=== PATIENT | male | born 1970 | race American Indian/Alaskan Native ===

== ENCOUNTER 2019-07-08 10:03 | Inpatient (IN) | payer BC ==
--- NOTE | 2019-07-08 11:51 | Emergency Department Report ---
HPI - General Chief Complaint: Extremity Injury, Lower Time Seen by Provider: 07/08/19 11:03 - HPI HPI: Room 37 The patient is a 49-year-old male presenting with chief complaint of right Lotrimin pain. Patient states he awakened this morning at 04:00 with pain in his right lower extremity that felt like a "charley horse." Patient states of 07:00 he got out of bed but the pain was persistent. This prompted the patient come to the emergency department. The patient gets his pain score of 10/10. Patient denies chest pain or shortness of breath. 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 The patient states he's has been compliant with his Eliquis ED Past Medical Hx - Past Medical History Hx Deep Vein Thrombosis: Yes (right lower extremity) - Surgical History Past Surgical History?: No - Family History Family history: no significant - Social History Smoking Status: Current Every Day Smoker (1/7 pack per day) Substance Use Type: Alcohol (occasional), Cocaine ED Review of Systems ROS: Stated complaint: RT LEG PAIN/POSS BLOD CLOT Other details as noted in HPI Constitutional: no symptoms reported Eyes: denies: eye pain ENT: denies: throat pain Respiratory: denies: shortness of breath Cardiovascular: denies: chest pain Endocrine: no symptoms reported Gastrointestinal: denies: abdominal pain Genitourinary: denies: dysuria Musculoskeletal: myalgia Neurological: denies: headache Physical Exam - Physical Exam Vital Signs: Vital Signs 07/08/19 10:09 Temperature 98.4 F Pulse Rate 84 Respiratory 16 Rate Blood Pressure 150/90 O2 Sat by Pulse 100 Oximetry Physical Exam: GENERAL: The patient is well-developed well-nourished male lying on stretcher not appearing to be in acute distress. [] HEENT: Normocephalic. Atraumatic. Extraocular motions are intact. Patient has moist mucous membranes. NECK: Supple. Trachea midline CHEST/LUNGS: There is no respiratory distress noted. HEART/CARDIOVASCULAR: Regular. There is no tachycardia. 2+ DP right foot SKIN: There is no rash. There is no edema. There is no diaphoresis. There is a chronic appearing ulceration to the medial aspect of the right lower extremity NEURO: The patient is awake, alert, and oriented. The patient is cooperative. The patient has normal speech MUSCULOSKELETAL: There is no evidence of acute injury. ED Course Vital Signs 07/08/19 10:09 Temperature 98.4 F Pulse Rate 84 Respiratory 16 Rate Blood Pressure 150/90 O2 Sat by Pulse 100 Oximetry ED Medical Decision Making - Radiology Data Radiology results: report reviewed (right lower extremity Doppler), image reviewed (right lower extremity Doppler) [facility] [address] [place] [address] Vascular Lab Report Signed Patient: DILEEP OROPEZA MR#: [id number] : 1970 Acct:[id number] Age/Sex: 49 / M ADM Date: 07/08/19 Loc: ED Attending Dr: Ordering Physician: NAHID EDMOND MD Date of Service: 07/08/19 Procedure(s): VL venous duplex LE RT Accession Number(s): [id number] cc: NAHID EDMOND MD DUPLEX DOPPLER RIGHT LOWER EXTREMITY VEINS INDICATION: Right leg pain. FINDINGS: There is subtle lack of compressibility and partial lack of flow in the right proximal superficial femoral vein and right superficial femoral vein midportion. The other right lower extremity veins appear patent. IMPRESSION: Partial DVT in the right proximal and mid superficial femoral veins. Signer Name: Royal Arroyo MD Signed: 07/08/2019 11:54 AM Workstation Name: [id number] Transcribed By: KAHLIL Dictated By: Royal Arroyo MD Electronically Authenticated By: Royal Arroyo MD Signed Date/Time: 07/08/19 1154 DD/ 1152 TD/TT: - Differential Diagnosis DVT, muscle spasm Critical care attestation.: If time is entered above; I have spent that time in minutes in the direct care of this critically ill patient, excluding procedure time. ED Disposition Clinical Impression: Right leg DVT Disposition: - OP ADMIT IP TO THIS HOSP Is pt being admited?: Yes Does the pt Need Aspirin: No Condition: Fair Referrals: PRIMARY CARE, [Primary Care Provider] - 3-5 Days Time of Disposition: 12:30 (hospitalist paged (Dr. Sandoval))
--- NOTE | 2019-07-08 11:58 | Vascular Lab Report ---
DUPLEX DOPPLER RIGHT LOWER EXTREMITY VEINS INDICATION: Right leg pain. FINDINGS: There is subtle lack of compressibility and partial lack of flow in the right proximal superficial fe moral vein and right superficial femoral vein midportion. The other right lower extremity veins appea r patent. IMPRESSION: Partial DVT in the right proximal and mid superficial femoral veins. Signer Name: Royal Arroyo MD Signed: 07/08/2019 11:54 AM Workstation Name: [id number]
[2019-07-08 12:32] LABS: Basophils # (Auto) 0.1 K/mm3 (0.0-0.1); Basophils % (Auto) 0.8 % (0.0-1.8); Eosinophils # (Auto) 0.4 K/mm3 (0.0-0.4); Eosinophils % (Auto) 5.5 % (0.0-4.3); Hemoglobin 13.9 gm/dl (11.8-15.2); Lymphocytes # (Auto) 2.2 K/mm3 (1.2-5.4); Lymphocytes % (Auto) 30.5 % (13.4-35.0); Mean Corpuscular HGB Conc 32 % (32-34); Mean Corpuscular Volume 85 fl (84-94); Monocytes # (Auto) 0.5 K/mm3 (0.0-0.8); Monocytes % (Auto) 7.3 % (0.0-7.3); Platelet Count 222 K/mm3 (140-440); Red Blood Count 5.05 M/mm3 (3.65-5.03)
[2019-07-08] MEDS ORDERED: HYDROcodone/ACETAMINOPHEN 5-325 MG TAB PO ONE (12:33)
[2019-07-08 12:41] LABS: BUN/Creatinine Ratio 16; Blood Urea Nitrogen 14 mg/dL (9-20); Calcium 9.2 mg/dL (8.4-10.2); Hemolysis Index 5
[2019-07-08] MEDS ORDERED: ONDANSETRON 4 MG/2 ML INJ IV PRN (13:10)
[2019-07-08] MEDS ORDERED: ACETAMINOPHEN 325 MG TAB PO PRN (13:10)
[2019-07-08] MEDS ORDERED: ALBUTEROL 2.5 MG/3 ML NEBU IH PRN (13:10)
--- NOTE | 2019-07-08 13:12 | History and Physical Report ---
History of Present Illness Chief complaint: My leg hurts History of present illness: 49 YO Male with recurrent DVT on Therapeutic Anticoagualtion with Eliquis, Nicotine dependence, Obesity presents to ED for evaluation. Pt states that he has experienced pain in his right leg over the past 1 day. Pt states that he has experienced worsening symptoms overnight and was awakened from sleep at 0400hrs with pain in his right lower extremity that felt like a "charley horse." Patient returned to sleep and was awakened at 07:00hrs with persistent symptoms. Pt transported to [facility] via private vehicle. Pt seen and evaluated in ED and found to have recurrent RLE DVT while on anticoagulation. Pt placed in observation status and admitted to medical floor. Vascular team consulted in ED. Pt initiated on heparin drip. Pt denies fever, chills, chest pain, palpitations, NVD, Trauma, shortness of breath, ETOH use, cocaine use, skin rash or recent ill contacts. No prior admission for review. All listed medication reconciled at time of admission. Past History Past Medical History: other (see HPI) Past Surgical History: No surgical history (reviewed) Social history: single, smoking. denies: alcohol abuse, prescription drug abuse , IV drug use Family history: hypertension Medications and Allergies Allergies Allergy/AdvReac Type Severity Reaction Status Date / Time No Known Allergies Allergy Verified 07/08/19 13:24 Active Meds: Active Medications Acetaminophen (Tylenol) 650 mg PO Q4H PRN PRN Reason: Pain MILD(1-3)/Fever >100.5/SHELDON Albuterol (Proventil) 2.5 mg IH Q4HRT PRN PRN Reason: Shortness Of Breath Ondansetron HCl (Zofran) 4 mg IV Q8H PRN PRN Reason: Nausea And Vomiting Oxycodone/Acetaminophen (Percocet 5/325) 1 tab PO Q6H PRN PRN Reason: Pain, Moderate (4-6) Sodium Chloride (Sodium Chloride Flush Syringe 10 Ml) 10 ml IV BID DAVID Sodium Chloride (Sodium Chloride Flush Syringe 10 Ml) 10 ml IV PRN PRN PRN Reason: LINE FLUSH Review of Systems Constitutional: no weight loss, no weight gain, no fever, no chills Ears, nose, mouth and throat: no ear pain, no ear discharge, no tinnitis, no decreased hearing, no nose pain, no nasal discharge, no sinus pressure Cardiovascular: no chest pain, no orthopnea, no edema, no syncope, no lightheadedness, no shortness of breath Respiratory: no cough, no cough with sputum, no excessive sputum, no hemoptysis, no shortness of breath, no dyspnea on exertion, no congestion, no pain, no pain on inspiration Gastrointestinal: no nausea, no vomiting, no diarrhea, no constipation, no change in bowel habits Genitourinary Male: no hematuria, no flank pain, no discharge, no urinary frequency, no urinary hesitancy, no nocturia, no incontinence Rectal: no pain, no incontinence, no bleeding Musculoskeletal: no neck stiffness, no neck pain, no shooting arm pain, no arm numbness/tingling, no low back pain, no shooting leg pain, no leg numbness/tingling Integumentary: no rash, no pruritis, no redness, no sores, no wounds, no jaundice Neurological: no transient paralysis, no paralysis, no weakness, no parathesias, no numbness, no tingling, no seizures, no syncope Psychiatric: no memory loss, no change in sleep habits, no sleep disturbances, no insomnia, no hypersomnia, no change in appetite, no change in libido, no suicidal ideation, no disorientation, no hallucinations Exam - Constitutional Vitals: Temp Pulse Resp BP Pulse Ox 98.4 F 84 16 150/90 100 07/08/19 10:09 07/08/19 10:09 07/08/19 10:09 07/08/19 10:09 07/08/19 10:09 General appearance: Present: no acute distress, well-nourished - EENT Eyes: Present: PERRL ENT: hearing intact, clear oral mucosa - Neck Neck: Present: supple, normal ROM - Respiratory Respiratory effort: normal Respiratory: bilateral: CTA - Cardiovascular Heart Sounds: Present: S1 & S2. Absent: rub, click - Extremities Extremities: pulses symmetrical, No edema Extremity abnormal: edema, ulceration (RLE Ulceration, tenderness, palpable cords) Peripheral Pulses: within normal limits - Abdominal General gastrointestinal: Present: soft, non-tender, non-distended, normal bowel sounds Male genitourinary: Present: normal - Integumentary Integumentary: Present: clear, warm, dry - Musculoskeletal Musculoskeletal: gait normal, strength equal bilaterally - Psychiatric Psychiatric: appropriate mood/affect, intact judgment & insight - Neurologic Neurologic: CNII-XII intact, moves all extremities Results - Labs CBC & Chem 7: 07/08/19 14:07 07/08/19 11:56 Labs: Abnormal lab results 07/08/19 Range/Units 11:56 RBC 5.05 H (3.65-5.03) M/mm3 Eos % (Auto) 5.5 H (0.0-4.3) % Assessment and Plan - Patient Problems (1) Right leg DVT Current Visit: Yes Status: Acute Qualifiers: Affected thrombotic vein of extremity: femoral Chronicity: acute Qualified Code(s): I82.411 - Acute embolism and thrombosis of right femoral vein Plan to address problem: Therapeutic anticoagulation, Vascular surgery consulted, supportive care, risk factor reduction, pain control. (2) Nicotine dependence Current Visit: Yes Status: Acute Qualifiers: Substance use status: in withdrawal Plan to address problem: smoking cessation counseling, +15min, supportive care (3) Obesity (BMI 30-39.9) Current Visit: Yes Status: Acute Plan to address problem: Balanced diet, increased physical activity at discharge (4) DVT prophylaxis Current Visit: Yes Status: Acute Plan to address problem: SCD to BLE while in bed, therapeutic anticoagulation
[2019-07-08 13:27] LABS: INR 1.04 (0.87-1.13)
[2019-07-08 13:28] LABS: Partial Thromboplastin Time 26.7 Sec. (24.2-36.6)
--- NOTE | 2019-07-08 13:29 | Consultation ---
History of Present Illness - Reason for Consult Consult date: 07/08/19 Right leg DVT - History of Present Illness Patient with a history of at least for right leg DVTs over the past 10 years. T he patient states that he has been compliant with Eliquis however, he is recently moved here from [place] and does not have local insurance. He presents with right lower extremity pain and a venous stasis ulcer overlying the medial malleolus. The patient states that he has had multiple venous stasis ulcers as well. 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 The patient has not had treatment of either superficial or deep venous system. The patient states that he has undergone hypercoagulable workup. Past History Past Medical History: DVT Social history: no significant social history Family history: no significant family history Medications and Allergies Allergies Allergy/AdvReac Type Severity Reaction Status Date / Time No Known Allergies Allergy Unverified 07/08/19 10:07 Active Meds: Active Medications Acetaminophen (Tylenol) 650 mg PO Q4H PRN PRN Reason: Pain MILD(1-3)/Fever >100.5/SHELDON Albuterol (Proventil) 2.5 mg IH Q4HRT PRN PRN Reason: Shortness Of Breath Heparin Sodium (Porcine) (Heparin 10,000 Units/10 Ml) 3,900 unit 40 unit/kg (3900 unit) IV ONCE ONE Stop: 07/08/19 13:12 Heparin Sodium/Sodium Chloride (Heparin/ 0.45% Nacl-25,000 Unit/500 Ml) 25,000 unit in 500 mls @ 29.61 mls/hr IV TITR DAVID; Protocol Ondansetron HCl (Zofran) 4 mg IV Q8H PRN PRN Reason: Nausea And Vomiting Oxycodone/Acetaminophen (Percocet 5/325) 1 tab PO Q6H PRN PRN Reason: Pain, Moderate (4-6) Sodium Chloride (Sodium Chloride Flush Syringe 10 Ml) 10 ml IV BID DAVID Sodium Chloride (Sodium Chloride Flush Syringe 10 Ml) 10 ml IV PRN PRN PRN Reason: LINE FLUSH Review of Systems All systems: negative Exam - Constitutional Vitals: Temp Pulse Resp BP Pulse Ox 98.4 F 84 16 150/90 100 07/08/19 10:09 07/08/19 10:09 07/08/19 10:09 07/08/19 10:09 07/08/19 10:09 General appearance: Present: no acute distress - EENT Eyes: Present: EOM intact ENT: hearing intact - Neck Neck: Present: supple, normal ROM - Respiratory Respiratory effort: normal - Extremities Extremities: abnormal Extremity abnormal: edema, ulceration - Abdominal General gastrointestinal: Present: deferred Male genitourinary: Present: deferred - Rectal Rectal Exam: deferred - Psychiatric Psychiatric: appropriate mood/affect, cooperative - Neurologic Neurologic: no focal deficits Results - Labs CBC & Chem 7: 07/08/19 11:56 07/08/19 11:56 Labs: Abnormal lab results 07/08/19 Range/Units 11:56 RBC 5.05 H (3.65-5.03) M/mm3 Eos % (Auto) 5.5 H (0.0-4.3) % - Imaging and Cardiology Venous US: report reviewed, image reviewed Assessment and Plan Given the patient's recurrent venous stasis ulcers involving his right leg and recurrent DVT, the patient will need to undergo ultrasound evaluation of both the superficial and deep venous system. Additionally, an arterial duplex will be ordered. His dorsalis pedis is palpable however, am unable to palpate his p osterior tibial secondary to overlying ulcer. The patient will ultimately likely require treatment of both the superficial and deep venous systems to allow healing of his ulcerations and prevention of recurrent DVTs. The patient's recurrent
[2019-07-08] MEDS ORDERED: HEPARIN 10,000 UNITS/10 ML VIAL IV ONE (14:00)
[2019-07-08 14:26] LABS: Hematocrit 41.2 % (35.5-45.6); Hemoglobin 13.3 gm/dl (11.8-15.2)
[2019-07-08 14:37] LABS: INR 1.06 (0.87-1.13)
[2019-07-08 14:38] LABS: Partial Thromboplastin Time 28.6 Sec. (24.2-36.6)
[2019-07-08] MEDS ORDERED: HEPARIN/ 0.45% NACL DRIP 25,000 UNIT/500 ML BAG ONE (16:13)
[2019-07-08] MEDS ORDERED: HEPARIN 10,000 UNITS/10 ML VIAL ONE (16:13)
[2019-07-08] MEDS: HEPARIN/ 0.45% NACL DRIP 25,000 UNIT/500 ML BAG IV SCH (16:21)
[2019-07-08 17:11] LABS: Amphetamine Screen,Urine PRESUMPTIVE NEGATIVE; Benzodiazepines Screen,Urine PRESUMPTIVE NEGATIVE; Cannabinoid Screen,Urine PRESUMPTIVE NEGATIVE; Methadone Screen,Urine PRESUMPTIVE NEGATIVE; Opiate Screen,Urine PRESUMPTIVE NEGATIVE
[2019-07-08 17:39] LABS: Cocaine Screen,Urine PRESUMPTIVE POSITIVE
[2019-07-08] MEDS: oxyCODONE /ACETAMINOPHEN 5-325MG TAB PO PRN (19:44)
[2019-07-09] MEDS: oxyCODONE /ACETAMINOPHEN 5-325MG TAB PO PRN ×3 (06:08→21:12)
--- NOTE | 2019-07-09 10:08 | Progress Note ---
Assessment and Plan Patient awaiting his vascular ultrasounds, further recommendations to follow. The patient will need treatment of the underlying etiology of his recurrent DVTs. Additionally, the patient will need to be placed on lifelong anticoagulation. The patient has recently moved to [place] and will need initiation of wound care as an outpatient. Subjective Date of service: 07/09/19 Principal diagnosis: right leg DVT, venous insufficiency, venous stasis ulcers Interval history: Patient resting comfortably in bed, decreased pain, patient has not yet had his vascular ultrasounds. Objective - Constitutional Vitals: Vital Signs - 12hr 07/08/19 07/09/19 22:54 06:35 Temperature 98.0 F 97.9 F Pulse Rate 62 62 Respiratory 18 18 Rate Blood Pressure 114/54 117/54 O2 Sat by Pulse 98 96 Oximetry General appearance: Present: no acute distress - EENT Eyes: EOM intact ENT: hearing intact - Neck Neck: supple, normal ROM - Respiratory Respiratory effort: normal - Breasts Breasts: deferred Extremity abnormal: edema, ulceration - Gastrointestinal General gastrointestinal: Present: deferred Rectal Exam: deferred - Genitourinary Male genitourinary: deferred - Psychiatric Psychiatric: appropriate mood/affect, cooperative - Labs CBC & Chem 7: 07/08/19 14:07 07/08/19 11:56 Labs: Abnormal lab results 07/08/19 07/08/19 Range/Units 11:56 23:23 RBC 5.05 H (3.65-5.03) M/mm3 Eos % (Auto) 5.5 H (0.0-4.3) % Heparin Anti-Xa Level 1.81 H (0.3-0.7) U.I./ml Medications & Allergies - Medications Allergies/Adverse Reactions: Allergies No Known Allergies Allergy (Verified 07/08/19 13:24) Home Medications: Home Medications Medication Instructions Recorded Confirmed Last Taken Type Apixaban [Eliquis] 5 mg PO DAILY 07/08/19 07/08/19 07/08/19 History Ciprofloxacin HCl [Ciprofloxacin 500 mg PO BID 07/08/19 07/08/19 07/08/19 History TAB] Active Medications: Generic Name Dose Route Start Last Admin Trade Name Freq PRN Reason Stop Dose Admin Acetaminophen 650 mg 07/08/19 13:10 Tylenol PO Q4H PRN Pain MILD(1-3)/Fever >100.5/SHELDON Albuterol 2.5 mg 07/08/19 13:10 Proventil IH Q4H PRN Shortness Of Breath Heparin Sodium/Sodium Chloride 25,000 unit in 500 mls @ 29 mls/hr 07/08/19 14:00 07/08/19 16:21 Heparin/ 0.45% Nacl-25,000 Unit/500 Ml IV 1,450 units/hr TITR DAVID 29 mls/hr Administration Protocol 1,450 UNITS/HR Ondansetron HCl 4 mg 07/08/19 13:10 Zofran IV Q8H PRN Nausea And Vomiting Oxycodone/Acetaminophen 1 tab 07/08/19 13:10 07/09/19 06:08 Percocet 5/325 PO 1 tab Q6H PRN Administration Pain, Moderate (4-6) Sodium Chloride 10 ml 07/08/19 22:00 07/09/19 00:24 Sodium Chloride Flush Syringe 10 Ml IV 10 ml BID DAVID Administration Sodium Chloride 10 ml 07/08/19 13:10 Sodium Chloride Flush Syringe 10 Ml IV PRN PRN LINE FLUSH
--- NOTE | 2019-07-09 14:37 | Progress Note ---
Assessment and Plan Assessment and plan: Right leg DVT, recurrent Therapeutic anticoagulation, Vascular surgery consulted, supportive care, risk factor reduction, pain control. Consult hematology Nicotine dependence smoking cessation counseling, +15min, supportive care (Obesity (BMI 30-39.9) Balanced diet, increased physical activity at discharge History Interval history: right leg pain Hospitalist Physical - Physical exam Narrative exam: Gen: Not in acute distress, lying in bed, HEENT: Normocephalic, atraumatic Neck: supple, no JVD Heart: S1 and S2 reg, no murmurs, rubs or gallop Lungs: Clear, no crackles Abd: soft, non tender, non distended, normal BS, Ext: Edema right leg, ulcer right lower ext, no clubbing, no cyanosis Neuro: Awake, alert, oriented X 3, No focal neurological signs - Constitutional Vitals: Temp Pulse Resp BP Pulse Ox 97.7 F 63 16 109/68 98 07/09/19 11:50 07/09/19 11:50 07/09/19 11:50 07/09/19 11:50 07/09/19 11:50 General appearance: Present: no acute distress Results - Labs CBC & Chem 7: 07/08/19 14:07 07/08/19 11:56 Labs: Laboratory Last Values WBC 7.3 K/mm3 (4.5-11.0) 07/08/19 11:56 RBC 5.05 M/mm3 (3.65-5.03) H 07/08/19 11:56 Hgb 13.3 gm/dl (11.8-15.2) 07/08/19 14:07 Hct 41.2 % (35.5-45.6) 07/08/19 14:07 MCV 85 fl (84-94) 07/08/19 11:56 MCH 28 pg (28-32) 07/08/19 11:56 MCHC 32 % (32-34) 07/08/19 11:56 RDW 14.0 % (13.2-15.2) 07/08/19 11:56 Plt Count 209 K/mm3 (140-440) 07/08/19 14:07 Lymph % (Auto) 30.5 % (13.4-35.0) 07/08/19 11:56 Kern % (Auto) 7.3 % (0.0-7.3) 07/08/19 11:56 Eos % (Auto) 5.5 % (0.0-4.3) H 07/08/19 11:56 Baso % (Auto) 0.8 % (0.0-1.8) 07/08/19 11:56 Lymph # 2.2 K/mm3 (1.2-5.4) 07/08/19 11:56 Kern # 0.5 K/mm3 (0.0-0.8) 07/08/19 11:56 Eos # 0.4 K/mm3 (0.0-0.4) 07/08/19 11:56 Baso # 0.1 K/mm3 (0.0-0.1) 07/08/19 11:56 Seg Neutrophils % 55.9 % (40.0-70.0) 07/08/19 11:56 Seg Neutrophils # 4.1 K/mm3 (1.8-7.7) 07/08/19 11:56 PT 13.7 Sec. (12.2-14.9) 07/08/19 14:07 INR 1.06 (0.87-1.13) 07/08/19 14:07 APTT 28.6 Sec. (24.2-36.6) 07/08/19 14:07 Heparin Anti-Xa Level 1.26 U.I./ml (0.3-0.7) H 07/09/19 09:20 Sodium 142 mmol/L (137-145) 07/08/19 11:56 Potassium 3.9 mmol/L (3.6-5.0) 07/08/19 11:56 Chloride 105.5 mmol/L (98-107) 07/08/19 11:56 Carbon Dioxide 23 mmol/L (22-30) 07/08/19 11:56 Anion Gap 17 mmol/L 07/08/19 11:56 BUN 14 mg/dL (9-20) 07/08/19 11:56 Creatinine 0.9 mg/dL (0.8-1.5) 07/08/19 11:56 Estimated GFR > 60 ml/min 07/08/19 11:56 BUN/Creatinine Ratio 16 % 07/08/19 11:56 Glucose 89 mg/dL (75-100) 07/08/19 11:56 Calcium 9.2 mg/dL (8.4-10.2) 07/08/19 11:56 Total Creatine Kinase 105 units/L (55-170) 07/08/19 11:56 Urine Opiates Screen Presumptive negative 07/08/19 16:50 Urine Methadone Screen Presumptive negative 07/08/19 16:50 Ur Barbiturates Screen Presumptive negative 07/08/19 16:50 Ur Phencyclidine Scrn Presumptive negative 07/08/19 16:50 Ur Amphetamines Screen Presumptive negative 07/08/19 16:50 U Benzodiazepines Scrn Presumptive negative 07/08/19 16:50 Urine Cocaine Screen Presumptive positive 07/08/19 16:50 U Marijuana (THC) Screen Presumptive negative 07/08/19 16:50 Drugs of Abuse Note Disclamer 07/08/19 16:50 Active Medications - Current Medications Current Medications: Generic Name Dose Route Start Last Admin Trade Name Freq PRN Reason Stop Dose Admin Acetaminophen 650 mg 07/08/19 13:10 Tylenol PO Q4H PRN Pain MILD(1-3)/Fever >100.5/SHELDON Albuterol 2.5 mg 07/08/19 13:10 Proventil IH Q4H PRN Shortness Of Breath Heparin Sodium/Sodium Chloride 25,000 unit in 500 mls @ 29 mls/hr 07/08/19 14:00 07/09/19 14:18 Heparin/ 0.45% Nacl-25,000 Unit/500 Ml IV Infused TITR DAVID Titration Protocol 1,450 UNITS/HR Ondansetron HCl 4 mg 07/08/19 13:10 Zofran IV Q8H PRN Nausea And Vomiting Oxycodone/Acetaminophen 1 tab 07/08/19 13:10 07/09/19 14:20 Percocet 5/325 PO 1 tab Q6H PRN Administration Pain, Moderate (4-6) Sodium Chloride 10 ml 07/08/19 22:00 07/09/19 14:21 Sodium Chloride Flush Syringe 10 Ml IV 10 ml BID DAVID Administration Sodium Chloride 10 ml 07/08/19 13:10 Sodium Chloride Flush Syringe 10 Ml IV PRN PRN LINE FLUSH
[2019-07-09] MEDS: HEPARIN/ 0.45% NACL DRIP 25,000 UNIT/500 ML BAG IV SCH (22:28)
[2019-07-10 08:28] LABS: Hematocrit 40.3 % (35.5-45.6); Hemoglobin 12.9 gm/dl (11.8-15.2)
--- NOTE | 2019-07-10 08:32 | Event Note ---
Date: 07/10/19 [id number]
[2019-07-10] MEDS: oxyCODONE /ACETAMINOPHEN 5-325MG TAB PO PRN (13:02)
--- NOTE | 2019-07-10 13:44 | Progress Note ---
Assessment and Plan 49-year-old male with venous ulcer of the right lower extremity and DVT with medication noncompliance. Patient was taking an adequate amount of anticoagulation (Eliquis, once a day instead of twice a day). Possible recurrent DVT noted. Recommend full anticoagulation for at least 3 months, then consideration of decreasing dose to 2.5 mg twice a day. Recommend venous insufficiency study. Patient can follow up as outpatient for venous closures/venous treatment. Patient has had this offered to him before, but for various reasons, has not had treatment of his veins to treat his underlying ulcer. Card provided. Follow-up in 2 weeks. Subjective Date of service: 07/10/19 Principal diagnosis: right leg DVT, venous insufficiency, venous stasis ulcers Interval history: Palpable dorsalis pedis pulses bilaterally. Adequate perfusion on arterial duplex. PVR at ankle with preserved waveform and [place] of 1. Suspect due to predominantly to venous issues/venous insufficiency. Discussed in depth with patient. Objective - Constitutional Vitals: Vital Signs - 12hr 07/10/19 07/10/19 05:24 11:46 Temperature 98.0 F 97.7 F Pulse Rate 52 L 67 Respiratory 20 18 Rate Blood Pressure 111/58 145/72 O2 Sat by Pulse 100 99 Oximetry General appearance: Present: no acute distress - EENT Eyes: EOM intact ENT: hearing intact - Respiratory Respiratory effort: normal Extremities: pulses intact, normal temperature, normal color, abnormal (right ankle venous ulcer) - Psychiatric Psychiatric: appropriate mood/affect, cooperative - Labs CBC & Chem 7: 07/10/19 07:54 07/08/19 11:56 Labs: Abnormal lab results 07/09/19 Range/Units 18:53 Heparin Anti-Xa Level 0.89 H (0.3-0.7) U.I./ml Medications & Allergies - Medications Allergies/Adverse Reactions: Allergies No Known Allergies Allergy (Verified 07/08/19 13:24) Home Medications: Home Medications Medication Instructions Recorded Confirmed Last Taken Type Apixaban [Eliquis] 5 mg PO DAILY 07/08/19 07/08/19 07/08/19 History Ciprofloxacin HCl [Ciprofloxacin 500 mg PO BID 07/08/19 07/08/19 07/08/19 History TAB] Active Medications: Generic Name Dose Route Start Last Admin Trade Name Freq PRN Reason Stop Dose Admin Acetaminophen 650 mg 07/08/19 13:10 Tylenol PO Q4H PRN Pain MILD(1-3)/Fever >100.5/SHELDON Albuterol 2.5 mg 07/08/19 13:10 Proventil IH Q4H PRN Shortness Of Breath Heparin Sodium/Sodium Chloride 25,000 unit in 500 mls @ 29 mls/hr 07/08/19 14:00 07/09/19 22:28 Heparin/ 0.45% Nacl-25,000 Unit/500 Ml IV 950 units/hr TITR DAVID 19 mls/hr Administration Protocol 1,450 UNITS/HR Ondansetron HCl 4 mg 07/08/19 13:10 Zofran IV Q8H PRN Nausea And Vomiting Oxycodone/Acetaminophen 1 tab 07/08/19 13:10 07/10/19 13:02 Percocet 5/325 PO 1 tab Q6H PRN Administration Pain, Moderate (4-6) Sodium Chloride 10 ml 07/08/19 22:00 07/10/19 13:02 Sodium Chloride Flush Syringe 10 Ml IV 10 ml BID DAVID Administration Sodium Chloride 10 ml 07/08/19 13:10 Sodium Chloride Flush Syringe 10 Ml IV PRN PRN LINE FLUSH
--- NOTE | 2019-07-10 14:35 | Discharge Summary ---
Providers - Providers Date of Admission: 07/08/19 13:10 Date of discharge: 07/10/19 Attending physician: RONAK MARCOS 07/08/19 13:01 Consult to Physician [CONS] Urgent Comment: Consulting Provider: KIANNA MARCIAL Physician Instructions: Reason For Exam: DVT 07/08/19 20:16 Consult to Wound/ET Nurse [CONS] Routine Reason For Exam: wound eval rt. 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 Pt states that he has experienced pain in his right leg over the past 1 day. Pt states that he has experienced worsening symptoms overnight and was awakened from sleep at 0400hrs with pain in his right lower extremity that felt like a "charley horse." Patient returned to sleep and was awakened at 07:00hrs with persistent symptoms. Pt transported to [facility] via private vehicle. Pt seen and evaluated in ED and found to have recurrent RLE DVT while on anticoagulation. Pt placed in observat ion status and admitted to medical floor. Vascular team consulted in ED. Pt initiated on heparin drip. Pt denies fever, chills, chest pain, palpitations, NVD, Trauma, shortness of breath, ETOH use, cocaine use, skin rash or recent ill contacts. No prior admission for review. All listed medication reconciled at time of admission. Discharge diagnosis and Mx: /Right leg DVT, recurrent Likely from noncompliance or inadequate medications - was taking eliquis once a day placed on heparin Therapeutic anticoagulation, then transitioned to Po eliquis f/u with senior program analyst outpt /PVD with right foot chronic wound, outpt f/u with Vascular /Nicotine dependence smoking cessation counseling, +15min, supportive care /Cocaine abuse, counseled for cessation /Obesity (BMI 30-39.9) recommended Balanced diet, increased physical activity at discharge Disposition: TO HOME OR SELFCARE Time spent for discharge: 34 minutes Core Measure Documentation - Palliative Care Palliative Care/ Comfort Measures: Not Applicable - Core Measures Any of the following diagnoses?: none Exam - Physical Exam Narrative exam: General appearance: Present: no acute distress, well-nourished - EENT Eyes: Present: PERRL ENT: hearing intact, clear oral mucosa - Neck Neck: Present: supple, normal ROM - Respiratory Respiratory effort: normal Respiratory: bilateral: CTA - Cardiovascular Heart Sounds: Present: S1 & S2. Absent: rub, click - Extremities Extremities: pulses symmetrical, No edema Extremity abnormal: edema, ulceration (RLE Ulceration with dressing) Peripheral Pulses: within normal limits - Abdominal General gastrointestinal: Present: soft, non-tender, non-distended, normal bowel sounds Male genitourinary: Present: normal - Integumentary Integumentary: Present: clear, warm, dry - Musculoskeletal Musculoskeletal: gait normal, strength equal bilaterally - Psychiatric Psychiatric: appropriate mood/affect, intact judgment & insight - Neurologic Neurologic: CNII-XII intact, moves all extremities - Constitutional Vitals: Temp Pulse Resp BP Pulse Ox 97.7 F 67 18 145/72 99 07/10/19 11:46 07/10/19 11:46 07/10/19 11:46 07/10/19 11:46 07/10/19 11:46 Plan Activity: advance as tolerated Weight Bearing Status: Weight Bear as Tolerated Diet: low fat, low cholesterol Wound: per wound nurse instructions Follow up with: PRIMARY CAREMD [Primary Care Provider] - 3-5 Days KIANNA HANLEY MD [Staff Physician] - 7 Days Prescriptions: Apixaban [Eliquis] 10 mg PO Q12HR #60 tablet oxyCODONE /ACETAMINOPHEN [Percocet 5/325 mg] 1 tab PO Q6H PRN #7 tablet PRN Reason: Pain, Moderate (4-6)
--- NOTE | 2019-07-10 14:36 | Vascular Lab Report ---
DUPLEX DOPPLER LOWER EXTREMITY ARTERIAL, BILATERAL INDICATION / CLINICAL INFORMATION: ulceraltion. TECHNIQUE: Arterial duplex examination of both lower extremities performed using B-mode, color flow and spectral Doppler assessment. FINDINGS: RIGHT: Common Femoral Artery: PSV 135 cm/sec. Triphasic waveform. Proximal SFA: PSV 123 cm/sec. Triphasic waveform. Mid SFA: PSV 119 cm/sec. Triphasic waveform. Distal SFA: PSV 123 cm/sec. Triphasic waveform. Popliteal artery: PSV 75 cm/sec. Triphasic waveform. Posterior tibial artery: PSV 66 cm/sec. Biphasic waveform. Dorsalis Pedis Artery: PSV 51 cm/sec. Triphasic waveform. LEFT: Common Femoral Artery: PSV 144 cm/sec. Triphasic waveform. Proximal SFA: PSV 117 cm/sec. Triphasic waveform. Mid SFA: PSV 106 cm/sec. Triphasic waveform. Distal SFA: PSV 88 cm/sec. Biphasic waveform. Popliteal artery: PSV 56 cm/sec. Triphasic waveform. Posterior tibial artery: PSV 48 cm/sec. Biphasic waveform. Dorsalis Pedis Artery: PSV 47 cm/sec. Biphasic waveform. Right [place]O: 1.01. Left [place]: 1.0. IMPRESSION: 1. No significant lower extremity peripheral artery disease. Ankle-Brachial Index (CHAPIN[place]O): - Calcified arteries > 1.4 - Normal = 0.9-1.4 - Mild PAD = 0.7-0.89 - Moderate PAD = 0.51-0.69 - Severe PAD < 0.5 Doppler Waveform: - Triphasic is normal. - Biphasic is abnormal if clear transition from triphasic signal along vascular tree. - Monophasic is abnormal. Signer Name: Alexis Garcia MD Signed: 07/10/2019 2:32 PM Workstation Name: [id number]
[2019-07-10] MEDS ORDERED: APIXABAN 5 MG TAB PO SCH (15:00)
[2019-07-10 16:20] VITALS: BP 126/74
--- NOTE | 2019-07-10 16:53 | Vascular Lab Report ---
DUPLEX DOPPLER LOWER EXTREMITY VEINS, BILATERAL INDICATION: rle ulceration; check for venous insuff.. TECHNIQUE: Duplex doppler imaging was performed through the veins of both lower extremities using venous gagandeep gen and other maneuvers. Great and small saphenous veins were evaluated in the supine and upright po sitions. Valsalva technique was used to evaluate for venous insufficiency. COMPARISON: None available. FINDINGS: RIGHT LOWER EXTREMITY DVT (Y/N): No. LEFT LOWER EXTREMITY DVT (Y/N): No. RIGHT LOWER EXTREMITY : Great Saphenous Vein: Size (supine/upright) & Reflux (Y/N) - Prox: 0.9 mm / mm. Reflux = Y - Mid: 0.6 mm / mm. Reflux = Y - Dist: 0.4 mm / mm. Reflux = Y Small Saphenous Vein: Size (supine/upright) & Reflux (Y/N) - Prox: 0.36 mm / mm. Reflux = - Mid: 0.2 mm / mm. Reflux = - Dist: 0.17 mm / mm. Reflux = LEFT LOWER EXTREMITY : Great Saphenous Vein: Size (supine/upright) & Reflux (Y/N) - Prox: 0.9 mm / mm. Reflux = Y - Mid: 0.4 mm / mm. Reflux = Y - Dist: 0.2 mm / mm. Reflux = Y Small Saphenous Vein: Size (supine/upright) & Reflux (Y/N) - Prox: 0.18 mm / mm. Reflux = - Mid: 0.1 mm / mm. Reflux = - Dist: 0.1 mm / mm. Reflux = Additional findings: Reflux at the veins. IMPRESSION: 1. No sonographic evidence for DVT. 2. Venous insufficiency at the deep veins and greater saphenous veins bilaterally. Signer Name: Ben Mcbride MD Signed: 07/10/2019 4:48 PM Workstation Name: [email or web address]
--- NOTE | 2019-07-11 00:27 | Consultation ---
REFERRING PHYSICIAN: Dr. Myers. REASON FOR CONSULTATION: Right lower leg DVT, recurrent. HISTORY OF PRESENT ILLNESS: I saw the patient, a 49-year-old male on the medical floor. The patient has history of right lower leg DVT. He says first episode was in 2006. He was placed on warfarin for a few years. He stopped on his own, recurrence happened 2010. He was placed on warfarin and again he had stopped after some time, he had insurance issues. He had DVT again in the right lower extremity in 2012. He was placed on warfarin and once he got an insurance, Xarelto and as he was not feeling well, it was changed to Lovenox for 10 days and then Eliquis from 2014. The patient says that he had been following with Dr. Dennis, mock up assembler in [place] until last year when his office had some issues. The patient says he has been getting prescription of Eliquis, 90-day supply from the [facility] office. He does not remember name of the doctor. The patient says he was getting 5 mg twice a day, but he has been only taking once a day, Eliquis. Recently, 2 weeks ago, he moved to [place], complaining of right leg swelling. He has his brother and his brother's family here. At this time, no headache, no visual disturbances, no ear discharge, no chest pain, no shortness of breath, no abdominal pain, no vomiting, no diarrhea, no dysuria. PAST MEDICAL HISTORY: As above. SOCIAL HISTORY: History of smoking present, advised to quit. Alcohol, occasional use is present, history of cocaine use is present, advised to quit. MEDICATIONS: Reviewed. ALLERGIES: None. PHYSICAL EXAMINATION: VITAL SIGNS: Temperature 98, pulse 52, respirations 20, BP 111/58. HEENT: No pallor. No icterus. NECK: No neck lymph nodes. HEART: S1, S2. LUNGS: Clear to auscultation. ABDOMEN: Soft. EXTREMITIES: Right leg swelling present. NEUROLOGIC: Alert, awake, oriented. LABORATORY DATA: White cell 7, hemoglobin 12, MCV 85, platelet 198. Potassium 3.9, creatinine 0.9, calcium 9.2. U-tox, cocaine positive. RADIOLOGY: Right leg Doppler, partial DVT in the right proximal and mid superficial femoral veins. ASSESSMENT AND PLAN: 1. Recurrent deep venous thrombosis. The patient has compliance issues. The patient had right lower leg deep venous thrombosis in 2006, 2010 and 2012 and now 2019. It is not clear if it is acute or chronic. The patient's says since August, he has just been taking 5 mg once a day instead of twice a day of Eliquis. I explained to him about compliance. He has [place] insurance. It is not clear if that is active here. He has 40 more pills of Eliquis. I discussed with him regarding option of warfarin and Arya versus my clinic appointment versus Eliquis trial, if insurance covers. 2. We will see if we can get notes from [place]. 3. Wound care followup. 4. History of cocaine use. I advised him to quit. 5. History of smoking. This may have a role in deep venous thrombosis, advised to quit. 6. I will follow the patient during inpatient stay. JOB# [id number] PHILLIP/MERE
== END 2019-07-10 18:00 | disposition home or self-care (01) | DRG 300 ==
LOC: ED 10:03 → 3A 13:10 → OBSVTOIN 13:10 → 3A 16:30
PROVIDERS: ADMIT Internal Medicine; ATTEND Internal Medicine
DX: I82.411 Acute embolism and thrombosis of right femoral vein (principal); F17.213 Nicotine dependence, cigarettes, with withdrawal; F14.10 Cocaine abuse, uncomplicated; I73.89 Other specified peripheral vascular diseases; E66.9 Obesity, unspecified; Z72.89 Other problems related to lifestyle; Z79.01 Long term (current) use of anticoagulants; Z82.49 Family history of ischemic heart disease and other diseases of the circulatory system; Z71.6 Tobacco abuse counseling; Z71.3 Dietary counseling and surveillance; Z68.33 Body mass index [BMI] 33.0-33.9, adult; Z91.19 Patient's noncompliance with other medical treatment and regimen
CPT/HCPCS: 36415; 80048; 80307; 82550; 85014; 85018; 85025; 85049; 85379; 85520; 85610; 85730; 93922; 93925; 93970; 94640; G0378; J1644